=== PATIENT | female | born 1945 | race Caucasian/White ===

== ENCOUNTER 2024-05-02 12:09 | Observation (INO) | payer MEDICARE ==
[2024-05-02] VITALS (10 sets, daily range): BP systolic 127–146; BP diastolic 47–76
[~2024-05-02] VITALS: Ht 160 cm; Wt 94.4 kg
[~2024-05-02 12:09] MED LIST: PROPOFOL 200 MG/20 ML VIAL IV ONE; SODIUM CHLORIDE 0.9% 1,000 ML BAG IV ONE; SUCCINYLCHOLINE CHLORIDE 20 MG/ML 10ML VIAL IV ONE
--- NOTE | 2024-05-02 12:30 | NUR ---
PATIENT TO ROOM VIA WHEELCHAIR, DAUGHTER ACCOMPANIES.
[2024-05-02] MEDS ORDERED: LIPITOR80 M1 PO (12:35)
[2024-05-02] MEDS ORDERED: ZOLOFT100 MG PO (12:35)
[2024-05-02] MEDS ORDERED: ELIQUIS5 MG PO (12:36)
[2024-05-02] MEDS ORDERED: LISINOPRIL10 MG PO (12:36)
[2024-05-02] MEDS ORDERED: B121000 MC1 PO (12:37)
[2024-05-02] MEDS ORDERED: LANTUS100 UNIT (12:37)
[2024-05-02] MEDS ORDERED: HUMALOG100 UNIT/M SC (12:38)
[2024-05-02] MEDS ORDERED: SODIUM CHLORIDE 0.9% 1,000 ML IV STA (12:38)
[2024-05-02] MEDS ORDERED: VITAMIN D320 MCG PO (12:39)
[2024-05-02] MEDS ORDERED: NEURONTIN100 MG PO (12:40)
[2024-05-02 13:00] LABS: BASO% 0.4 % (0-3); EOS% 0.8 % (0-8); HEMATOCRIT 45.9 % (37.0-47.0); HEMOGLOBIN 14.9 g/dl (12.0-16.0); IMMATURE GRANULOCYTES 0.4 % (0.0-5.0); LYMPH% 17.2 % (15-41); MEAN CELL VOLUME 89.3 fL CALC (80.0-100.0); MEAN CORPUSCULAR HGB CONC 32.5 g/dL CAL (32.0-36.0); MONO% 6.7 % (2-13); NEUT# 3.81 thou/uL (2.00-7.15); NEUT% 74.5 % (42-76); RED BLOOD COUNT 5.14 mill/uL (4.20-5.60); RED CELL DISTRI WIDTH 13.8 % (11.5-15.5)
[2024-05-02 13:31] LABS: ALBUMIN 4.8 g/dL (3.2-5.0); BILIRUBIN, TOTAL 0.8 mg/dL (0.02-1.3); CREATININE 1.2 mg/dL (0.5-1.0); POTASSIUM 4.4 mmol/l (3.5-5.1); TOTAL PROTEIN 9.3 g/dL (6.3-8.2)
--- NOTE | 2024-05-02 13:50 | NUR ---
PT PROVIDED WITH WARM BLANKETS PER REQUEST.
--- NOTE | 2024-05-02 15:08 | NUR ---
PT RESTING, NO NEEDS AT THIS TIME.
[2024-05-02] MEDS ORDERED: SODIUM CHLORIDE 0.9% 1,000 ML IV ONE (16:05)
[2024-05-02] MEDS ORDERED: INSULIN REGULAR (HUMAN) 100 UNIT/ML INJ IV ONE (16:05)
[2024-05-02] MEDS ORDERED: Levofloxacin 500 mg Premix 100 ML IV ONE (16:05)
[2024-05-02] MEDS ORDERED: MAGNESIUM HYDROXIDE 30 ML UDC PO PRN (16:25)
[2024-05-02] MEDS ORDERED: SODIUM CHLORIDE 0.9% 1,000 ML IV PRN (16:25)
[2024-05-02] MEDS ORDERED: ACETAMINOPHEN 325 MG/TAB PO PRN (16:25)
[2024-05-02] MEDS ORDERED: INSULIN LISPRO 100 UNITS/ML ML SC SCH (17:00)
[2024-05-02] MEDS ORDERED: Levofloxacin 500 mg Premix 100 ML IV SCH (17:00)
--- NOTE | 2024-05-02 17:09 | NUR ---
OR STAFF HERE TO GET PT, TRANSFERRED CARE OF PT.
[2024-05-02] MEDS ORDERED: Pantoprazole Sodium 40 MG VIAL (Protonix) IV SCH (18:00)
[2024-05-02] MEDS ORDERED: STERILE WATER FOR IRRIGATION 1,000 ML BTL IR ONE (18:19)
[2024-05-02] MEDS ORDERED: ONDANSETRON HCl 4 MG/2 ML SDV IV PRN (18:20)
[2024-05-02] MEDS ORDERED: KETOROLAC TROMETHAMINE 30 MG/ML SDV ONE (18:41)
[2024-05-02] MEDS ORDERED: ACETAMINOPHEN 100 ML IV ONE (18:41)
--- NOTE | 2024-05-02 19:06 | NUR ---
PATIENT TRANSFERRED VIA STRETCHER BY OR NURSES X2 TO ROOM. PATIENT SLID TO ROOM BED WITHOUT DIFFICULTY. ALERT AND ORIENTED. ABLE TO MAKE NEEDS KNOWN. RECEIVED REPORT FROM Ely COTTON RN. ASSESSMENT COMPLETE. NO DISTRESS NOTED. PATIENT COMPLAINTS OF DISCOMFORT TO LEFT SHOULDER AT TIMES. DID RECEIVE PAIN MEDICATION FROM OR NURSE RIGHT BEFORE COMING TO MS. NO SKIN ISSUES NOTED OTHER THEN BUTTOCKS APPEARS SLIGHTLY REDDENED. PATIENT ORIENTED TO ROOM CALL YOU AND SURROUNDINGS. FRESH ICE WATER AT BEDSIDE. BED IN LOW POSITION. CALL YOU IN REACH.
[2024-05-02] MEDS ORDERED: ENOXAPARIN SODIUM 40 MG/0.4 ML SYR SC SCH (21:00)
[2024-05-02] MEDS ORDERED: GABAPENTIN 100 MG/CAP PO SCH (21:00)
[2024-05-02] MEDS ORDERED: SERTRALINE HCL 50 MG/TAB PO SCH (21:00)
--- NOTE | 2024-05-02 23:15 | NUR ---
PATIENT REMAINS RESTING IN BED. DENIES NEEDING ANYTHING AT THIS TIME. BED REMAINS IN LOW POSITION. CALL YOU IN REACH.
--- NOTE | 2024-05-03 04:13 | NUR ---
PATIENT REMAINS RESTING IN BED TOWARDS HER RIGHT SIDE. NO DISTRESS NOTED. NO COMPLAINTS OF PAIN AT THIS TIME. DENIES NEEDING ANYTHING. BED REMAINS IN LOW POSITION. CALL YOU IN REACH.
[2024-05-03 04:28] VITALS: BP 131/63
[2024-05-03 05:19] LABS: BASO% 0.2 % (0-3); EOS% 1.9 % (0-8); IMMATURE GRANULOCYTES 0.7 % (0.0-5.0); LYMPH% 13.2 % (15-41); MEAN CELL VOLUME 92.2 fL CALC (80.0-100.0); MEAN CORPUSCULAR HGB 28.8 pG CALC (26.0-32.0); MEAN CORPUSCULAR HGB CONC 31.2 g/dL CAL (32.0-36.0); MONO% 4.4 % (2-13); NEUT# 3.44 thou/uL (2.00-7.15); NEUT% 79.6 % (42-76); RED BLOOD COUNT 4.1 mill/uL (4.20-5.60); RED CELL DISTRI WIDTH 14.1 % (11.5-15.5)
[2024-05-03 05:25] LABS: BILIRUBIN, TOTAL 0.6 mg/dL (0.02-1.3); CREATININE 1.1 mg/dL (0.5-1.0); POTASSIUM 3.6 mmol/l (3.5-5.1)
[2024-05-03 05:28] LABS: HEMATOCRIT 37.8 % (37.0-47.0); HEMOGLOBIN 11.8 g/dl (12.0-16.0)
[2024-05-03 05:35] LABS: ALBUMIN 3.3 g/dL (3.2-5.0); TOTAL PROTEIN 6.5 g/dL (6.3-8.2)
[2024-05-03 07:21] VITALS: BP 133/55
--- NOTE | 2024-05-03 07:28 | NUR ---
patient glucose level is 130.
--- NOTE | 2024-05-03 07:29 | NUR ---
patient glucose level is 187.
--- NOTE | 2024-05-03 07:30 | NUR ---
PT SITTING UP IN BED WATCHING TV, PT IS A&O X3, PUPILS PERRL, RESP. EVEN AND UNLABORED, ABD DISTENDED AND SOFT WITH ACTIVE BOWEL SOUNDS, NORMAL S2 S3 HEART SOUNDS, 22G RAC IV SL, 22G LFA IV WITH FLUIDS INFUSING AT PRESCRIBED RATE, STRONG RADIAL PULSES, WEAK PEDAL PULSES, R LEG +1 EDEMA, SAFETY MEASURES REINFORCED, CALL YOU WITHIN REACH
[2024-05-03] MEDS ORDERED: LISINOPRIL 10 MG/TAB PO SCH (09:00)
[2024-05-03] MEDS ORDERED: YEAST (S. BOULARDII)(S. CEREVI 250 MG CAP PO SCH (12:00)
--- NOTE | 2024-05-03 12:00 | NUR ---
PT SITTING UP IN BED TALKING TO VISITOR, PT DENIES ANY NEEDS AT THIS TIME, PT REMINDED TO CALL FOR ASSISTANCES, CALL YOU WITHIN REACH
[2024-05-03 15:56] VITALS: BP 122/54
--- NOTE | 2024-05-03 16:00 | NUR ---
PT LAYING IN BED RESTING WITH EYES CLOSED, AROUSES EASILY TO VERBAL STIMULI, PT ASSISTED WITH REPOSITIONING FOR COMFORT, NO S/S OF DISTRESS AT THIS TIME, CALL YOU WITHIN REACH,
[2024-05-03] MEDS ORDERED: Levofloxacin 500 mg Premix 100 ML IV SCH (17:00)
[2024-05-03 19:29] VITALS: BP 134/59
--- NOTE | 2024-05-03 19:40 | NUR ---
PT RESTING WITH THE HEAD OF THE BED SLIGHTLY ELEVATED AND WATCHING TV AT THIS TIME. REQUESTING TYLENOL FOR PAIN TO LEFT SHOULDER 8/10 ON PAIN SCALE SCALE-MEDICATED WITH 650 MG PO AT THIS TIME. DENIES ANY VOMITING OR NAUSEA. 22 G IV FLSUES AMD WORKS WELL. 22 G IV FOREARM INFUSING IVF NS AT 100 MLS/ HR. PUREWICK IN PLACE WITH CLEAR YELLOW URINE. RESPS ARE EVEN AND UNLABORED. DENIES ANY DSITRESS. LUNGS ARE CLEAR ALL THROUGHOUT. ABDOMEN IS DISTENDED BUT SOFT WITH ACTIVE BOWEL SOUNDS. STRONG PERIPHERAL PULSES TO TOUCH. SKIN IS INTACT AND WARM. PT ABLE TO MAKE NEEDDS KNOWN. CALL LIGHT IS IN REACH D SAFETY PRECAUTIONS IN PLACE.
--- NOTE | 2024-05-03 19:49 | NUR ---
PATIENT RESTING IN SEMI LEBLANC'S POSITION. ALERT AND OREINTED X3. DENIES ANY PAIN AT THIS MOMENT. RESPS ARE EVEN AND UNLABORED. LUNGS ARE VCLEAR TO AUSCULTATION. ABDOMEN IS SOFT AND DISTENDED WITH ACTIBE BOWEL SOUNDS. WESK PEDAL PULSES TO TOUCH. PAD-DRESSING TO BOTH HEELS AND HEELS PROTECTORS IN PLACE ORDERED. PUREWICK- WITH NO URINE AT THIS TIME. 24 G IV RIGHT APPEARS HEALTHY AND CLEAN. IVF NS PATENT AND INFUSING AT 10 MLS/HR. FEET ELEVATED. NO EDEMA NOTED. SKIN IS DRY AND WARM. CALL LIGTH IS WITHIN REACH AND SAFETY PRECAUTIONS IN PLACE.
--- NOTE | 2024-05-04 | NUR ---
PT APPEARS RESTING IN BED WATCHING TV AT THIS TIME. RESPS ARE EVEN AND UNLABORED. IV NS INSUSING VIA LEFT FOREARM ORDERED. CALL LIGHT IS IN REACH AND SAFETY PRECAUTIONS IN PLACE.
--- NOTE | 2024-05-04 04:00 | NUR ---
PT RESTING WITH THE HEAD OF THE BED ELEVATED AT THIS TIME. BREATHING IS EVEN AND UNLABORED. IVF NS INFUSING ORDERED. CALL LIGHT IS IN REACH AND SAFETY PRECAUTIONS IN PLACE.
[2024-05-04 05:01] LABS: HEMATOCRIT 40.6 % (37.0-47.0); HEMOGLOBIN 12.3 g/dl (12.0-16.0); MEAN CELL VOLUME 94.2 fL CALC (80.0-100.0); MEAN CORPUSCULAR HGB 28.5 pG CALC (26.0-32.0); MEAN CORPUSCULAR HGB CONC 30.3 g/dL CAL (32.0-36.0); RED BLOOD COUNT 4.31 mill/uL (4.20-5.60); RED CELL DISTRI WIDTH 14.1 % (11.5-15.5)
[2024-05-04 05:13] LABS: ALBUMIN 3.4 g/dL (3.2-5.0); BILIRUBIN, TOTAL 0.6 mg/dL (0.02-1.3); CREATININE 0.9 mg/dL (0.5-1.0); POTASSIUM 3.6 mmol/l (3.5-5.1); TOTAL PROTEIN 6.7 g/dL (6.3-8.2)
[2024-05-04 07:27] VITALS: BP 130/58
--- NOTE | 2024-05-04 07:27 | NUR ---
PATIENT LAYING IN BED. PATIENT A&OX3 AND ABLE TO MAKE NEEDS KNOWN. PATIENT ACCU CHECK COMPLETED AND PATIENT TOLERATED WELL. PATIENT DENIES ANY NEEDS AT THIS TIME.
[2024-05-04] MEDS ORDERED: traMADol HCL 50 MG/TAB PO PRN (09:10)
--- NOTE | 2024-05-04 12:00 | NUR ---
PATIENT LAYING IN BED. VISITORS AT BEDSIDE. PATIENT DENIES NEEDS AT THIS TIME.
[2024-05-04 13:23] LABS: URINE BILIRUBIN - DIPSTICK Negative (NEGATIVE); URINE BLOOD DIPSTICK Trace-lysed (NEGATIVE); URINE GLUCOSE - DIPSTICK 100 mg/dL (NEGATIVE); URINE KETONE Negative (NEGATIVE); URINE NITRITE - DIPSTICK Negative (Negative); URINE PH 5.5 (4.5-8.0); URINE PROTEIN - DIPSTICK Negative (NEG-TRACE); URINE UROBILINOGEN - DIPSTICK 0.2 E.U./dL (0.2)
[2024-05-04 13:25] LABS: URINE COLOR Yellow; URINE LEUK ESTERASE Moderate (NEGATIVE)
[2024-05-04 13:34] LABS: URINE BACTERIA MODERATE hpf; URINE RBC 0-2 RBC/hpf (0-5); URINE SQUAMOUS EPITHELIAL CELL FEW EPI/hpf (0-FEW)
[2024-05-04 15:29] VITALS: BP 142/74
--- NOTE | 2024-05-04 15:53 | NUR ---
PATIENT LAYING IN BED. PATIENT DENIES ANY NEEDS AT THIS TIME.
[2024-05-04 18:51] VITALS: BP 142/63
--- NOTE | 2024-05-04 19:41 | NUR ---
PATIENT RESTING IN BED WATCHING TV AT THIS TIME. ALERT AND ORIENTED X3. PT REPORTS PAIN TO LEFT SHOULDER 7/10 ON PAIN SCALE PT STATES THAT SHE WANTS PAIN MEDICATION UNTIL SHE GETS HER NIGHT MEDS. BREATHING IS EVEN AND UNLABORED. NO SIGNS OF DISTRESS AT THIS TIME. DENIES ANY N/V. ABDOMEN IS DISTENDED BUT SOFT WITH ACTIVE BOWEL SOUNDS. LUNGS ARE CLEAR TO AUCULTATION. STRONG PEDAL PULSES TO TOUCH. 22 G IV RAC FLUSHED WITH 5 CC-SALINE LOCK. 22 G IV LEFT FOREARM INFUSING IVF NS AT 100 MLS/HR. PUREWICK IN PLACE DRAINING MILD DARK YELLOW URINE. DENIES ANY NEEDS AT THIS TIME. CALL LIGHT IS IN REACH AND SAFETY PRECAUTIONS IN PLACE.
--- NOTE | 2024-05-05 | NUR ---
PT RESTING IN SEMI LEBLANC'S POSITION AT THIS TIME WITH EYES CLOSED. RESPS ARE EVEN AND UNLABORED. INF NORMAL SALINE INFUSING VIA LEFT FOREARM ORDERED. PUREWICK IN PLACE WITH CLEAR YELLOW URINE. CALL LIGHT IS IN REACH AND SAFETY PRECAUTIONS IN PLACE.
--- NOTE | 2024-05-05 04:00 | NUR ---
PT LAYING WITH THE HEAD OF THE BED SLIGHTLY ELEVATED AND EYES CLOSED AT THIS MOMENT. BREATHING IS EVEN AND UNLABORED. PUREWICK DRAINING YELLOW URINE. IVF STILL INFUSING ORDERED. CALL LIGHT IS IN REACH AND SAFETY PRECAUTIONS IN PLACE.
[2024-05-05 04:14] VITALS: BP 148/68
[2024-05-05 04:51] VITALS: BP 148/68
[2024-05-05 04:55] LABS: BASO% 0.2 % (0-3); EOS% 2.3 % (0-8); HEMATOCRIT 38.3 % (37.0-47.0); HEMOGLOBIN 11.7 g/dl (12.0-16.0); IMMATURE GRANULOCYTES 0.6 % (0.0-5.0); LYMPH% 17.3 % (15-41); MEAN CELL VOLUME 94.8 fL CALC (80.0-100.0); MEAN CORPUSCULAR HGB CONC 30.5 g/dL CAL (32.0-36.0); MONO% 7.3 % (2-13); NEUT# 3.48 thou/uL (2.00-7.15); NEUT% 72.3 % (42-76); RED BLOOD COUNT 4.04 mill/uL (4.20-5.60)
[2024-05-05 05:00] LABS: CREATININE 1.1 mg/dL (0.5-1.0); MAGNESIUM 1.3 mg/dL (1.6-2.3); POTASSIUM 3.9 mmol/l (3.5-5.1); TOTAL PROTEIN 6.2 g/dL (6.3-8.2)
--- NOTE | 2024-05-05 05:13 | NUR ---
PATIENT REQUESTED TYLENOL FOR HEADACHE 6/10 ON PAIN SCLAE. MEDICATED WITH TYLENOL 650 MG PO AT THIS TIME. CALL LIGHT IS WITHIN REACH AND SAFETY PRECAUTIONS IN PLACE.
[2024-05-05 05:16] LABS: BILIRUBIN, TOTAL 0.3 mg/dL (0.02-1.3)
[2024-05-05 07:23] VITALS: BP 142/69
--- NOTE | 2024-05-05 07:34 | NUR ---
PT IS ALERT TIMES 4. PT ADMITTED DX IS ESOPHAGEAL FOREIGN BODY, DIVERTICULITIS. DURING SAFETY ROUNDS PT WAS OBSERVED ASLEEP IN BED. PT IV SITE IS CLEAN AND DRY WITH NO S/O INFECTION. PT SKIN IS INTACT. PT HAS NO C/O PAIN AT THIS TIMES. PT WAS RE-EDUCATED ON THE SAFETY OF USING HER CALL YOU. PT VERBALIZED UNDERSTANDING. PT CALL YOU IS WITH-IN REACH. NURSING WILL CONTINUE TO MONITOR.
[2024-05-05 07:36] VITALS: BP 142/69
[2024-05-05] MEDS ORDERED: MAGNESIUM SULFATE HEPTAHYDRATE 100 ML IV SCH (08:30)
[2024-05-05] MEDS ORDERED: FLORASTOR250 M1 PO (09:28)
[2024-05-05] MEDS ORDERED: LEVOFLOXACIN500MG PO (09:32)
[2024-05-05] MEDS ORDERED: METRONIDAZOLE500 MG PO (09:32)
--- NOTE | 2024-05-05 12:43 | NUR ---
PT IS ALERT TIMES 4. PT WAS ASSISTED WITH A SHOWER THIS MORNING BY NURSING STAFF. T MORN ING MEDICATION GIVEN WITH NO A/E NOTED. PT BOTH IV SITES WAS INFILTRATED. NEW 22 GUAGE WAS PLACED IN RIGHT FOREARM SITE IS CLEAN AND DRY WITH NO S/O INFECTION. PT IV MEDICATION IS INFUSING WITH NO A/E AT THIS TIME.PT IS SITTING IN HER RECLINER IN HER ROOM WATCHING TV. PT CALL YOU IS AT REACH. NURSING WILL CONTINUE TO [facility].
[2024-05-05 15:56] VITALS: BP 142/56
--- NOTE | 2024-05-05 16:12 | NUR ---
PT IS ALERT TIMES 4. PT IV ABT IS INFUSING WELL. PT DISCHARGE SUMMARY WAS READ TO HER. PT VERBALIZED UNDERSTANDING. PT IS SITTING IN HER RECLINER IN HER ROOM COMFORTABLY. PT CALL YOU IS WITHIN REACH ALL SAFETY MEASURES ARE IN PLACE.
--- NOTE | 2024-05-05 18:41 | NUR ---
Discharge instructions given. Patient verbalizes understanding of same. Discharged in stable condition via Wheelchair to Home with family. All belongings sent with pt.
--- NOTE | 2024-05-08 11:53 | NUR ---
Discharge follow up call completed 05/08/24. Daughter of patient states patient is doing well. She has prescribed medication and is taking as directed. Daughter states that patient has n appointment with a new provider on June 02 and was told that was the earliest available. Patient currently takes blood thinners and daughter states she is almost out of medication and does not have a refill. This medication was prescribed by PCP from her previous place of residence and she has never seen the new provider before. Encouraged daughter to contact new PCP and inform them of the patient's recent hospitalization and see if they can see her sooner. Also, ask about blood thinner script. Case Mgmt was informed of the patient's situation and they will discuss with hospitalst. No other needs verbalized by daughter at this time.
[2024-05-08] MEDS ORDERED: ELIQUIS5 MG PO (12:09)
== END 2024-05-05 17:45 | disposition home or self-care (01) ==
LOC: ED 12:09 → ED-I 16:15 → ED 16:42 → MS2 16:43
PROVIDERS: Family Medicine; Nurse Practitioner Family; Surgery; ADMIT Internal Medicine; ATTEND Internal Medicine
PROC: 0DC38ZZ Extirpation of Matter from Lower Esophagus, Via Natural or Artificial Opening Endoscopic (ICD-10-PCS; principal; 2024-05-02)
PROC: 0D738ZZ Dilation of Lower Esophagus, Via Natural or Artificial Opening Endoscopic (ICD-10-PCS; 2024-05-02)
DX: T18.128A Food in esophagus causing other injury, initial encounter (principal); K57.32 Diverticulitis of large intestine without perforation or abscess without bleeding; I10 Essential (primary) hypertension; E11.40 Type 2 diabetes mellitus with diabetic neuropathy, unspecified; K08.109 Complete loss of teeth, unspecified cause, unspecified class; M25.512 Pain in left shoulder; M79.89 Other specified soft tissue disorders; M10.9 Gout, unspecified; W44.F3XA Food entering into or through a natural orifice, initial encounter; Z86.711 Personal history of pulmonary embolism; Z79.01 Long term (current) use of anticoagulants; Z79.4 Long term (current) use of insulin; Z86.718 Personal history of other venous thrombosis and embolism; Z85.42 Personal history of malignant neoplasm of other parts of uterus; Z20.822 Contact with and (suspected) exposure to COVID-19
CPT/HCPCS: J0131; J1650; J1815; J1836; J1956; J2470; J3475; Q9967